=== PATIENT | female | born 1935 | race Caucasian/White ===

== ENCOUNTER → 2017-03-25 | Outpatient (CLI) | payer MEDICARE, BC ==
[~2017-03-25] MED LIST: ACET-2321 PO; ASCO-297 PO; ASPI-1115 PO; CALC600T86 PO; CYAN1TAB46 PO; DOCU-168 PO; FISH1CAP59 PO; GLUC-176 PO; LUTE1CAP4 PO; NAPR220T61 PO; OXYC-544 PO; PANT40TA32 PO; POLY17PO6 PO; VITA-321 PO; [UNRECOGNIZED DRUG - CODE] PO
== END ==
LOC: WC.BC 13:14
DX: Z12.31 Encounter for screening mammogram for malignant neoplasm of breast (principal)
CPT/HCPCS: 77063; G0202